=== PATIENT | male | born 1985 | race Hispanic/Latino ===

== ENCOUNTER 2017-02-22 15:04 | Emergency (ER) | payer SELFPAY ==
[~2017-02-22] VITALS: Ht 177.8 cm; Wt 80.0 kg
[2017-02-22] MEDS ORDERED: KEFLEX500 MG PO (15:47)
[2017-02-22] MEDS ORDERED: TRAMADOL HYDROC50 MG PO (15:47)
[2017-02-22 16:06] VITALS: BP 142/74
== END 2017-02-22 16:14 | disposition home or self-care (01) | DRG 605 ==
LOC: ED 15:04 → EDBD 15:27 → ED 15:27
PROC: 0HQGXZZ Repair Left Hand Skin, External Approach (ICD-10-PCS; principal; 2017-02-22)
PROC: 2W3FX1Z Immobilization of Left Hand using Splint (ICD-10-PCS; 2017-02-22)
DX: S61.012A Laceration without foreign body of left thumb without damage to nail, initial encounter (principal); S56.322A Laceration of extensor or abductor muscles, fascia and tendons of left thumb at forearm level, initial encounter; W27.0XXA Contact with workbench tool, initial encounter; Y93.H2 Activity, gardening and landscaping; Y92.007 Garden or yard of unspecified non-institutional (private) residence as the place of occurrence of the external cause